=== PATIENT | male | born 1970 | race Caucasian/White ===

== ENCOUNTER → 2017-12-04 | Outpatient (CLI) | payer OTHER ==
--- NOTE | 2017-12-04 08:52 | DIAGNOSTIC IMAGING REPORT ---
ULTRASOUND SOFT TISSUES RIGHT WRIST CLINICAL HISTORY: Fall with right wrist pain. COMPARISON STUDY: Radiographs of the right wrist dated 02/28/2010. FINDINGS: Real-time, grayscale, and color flow sonography of the soft tissues of the right posterior wrist is performed at the indicated site of interest. No abnormality is seen. There is no fluid collection identified. IMPRESSION: Unremarkable sonographic assessment of the soft tissues of the right wrist at the indicated site of interest. Electronically signed by: Ron Ramirez M.D. 12/04/2017 8:51 AM Dictated Date/Time: 12/04/2017 8:50 AM
== END | disposition home or self-care (01) ==
LOC: C.ULTR 08:07
PROVIDERS: ATTEND Family Medicine
DX: M25.531 Pain in right wrist (principal); Z91.048 Other nonmedicinal substance allergy status

== ENCOUNTER → 2017-12-08 | Outpatient (CLI) | payer OTHER ==
--- NOTE | 2017-12-08 09:57 | DIAGNOSTIC IMAGING REPORT ---
R WRIST MIN 3 VIEWS ROUTINE HISTORY: 47 years-old Male PAIN IN R WRIST acute right wrist pain COMPARISON: ] Wrist radiographs 02/28/2010 TECHNIQUE: 4 views of the right wrist FINDINGS: Study is limited secondary to oblique positioning on the PA view. There is no acute fracture, subluxation or significant degenerative changes. Soft tissues are unremarkable without opaque foreign body. IMPRESSION: No acute fracture identified. The above report was generated using voice recognition software. It may contain grammatical, syntax or spelling errors. Electronically signed by: Rafael Frazier M.D. 12/08/2017 9:55 AM Dictated Date/Time: 12/08/2017 9:54 AM
== END | disposition home or self-care (01) ==
LOC: C.RAD1850 09:44
PROVIDERS: ATTEND Student in an Organized Health Care Education/Training Program
DX: M25.531 Pain in right wrist (principal)